=== PATIENT | female | born 1955 | race Caucasian/White ===

== ENCOUNTER 2018-02-18 07:11 | Day surgery (SDC) | payer BC ==
[~2018-02-18 07:11] MED LIST: DIPHENHYDRAMINE HCL 50 MG/ML VIAL ONE; EPINEPHRINE INJ 1 MG/10 ML DISP.SYRIN ONE; FENTANYL CITRATE INJ/PF 100 MCG/2 ML AMPUL ONE; FLUMAZENIL INJ 0.5 MG/5 ML VIAL ONE; GLUCAGON,HUMAN RECOMB 1 MG INJ ONE; NALOXONE HCL INJ/PF 0.4 MG/1 ML SDV ONE; ONDANSETRON HCL INJ/PF 4 MG/2 ML SDV ONE
[2018-02-18] MEDS: MIDAZOLAM 2 MG/2 ML INJ ONE ×4 (07:34→07:58)
--- NOTE | 2018-02-18 08:31 | Discharge Summary ---
Discharge Summary (SDC) - Discharge Final Diagnosis: Multiple colonic polyps; pandiverticulosis Date of Surgery: 02/18/18 Discharge Date: 02/18/18 Condition: Good Treatment or Instructions: [place] [id number] POST ENDOSCOPY DISCHARGE INSTRUCTIONS 1. Diet: Start clear liquids that a regular diet as tolerated. 2. Resume all preoperative medications. All oral anticoagulants and aspirins can be resumed 24 hours after procedure. 3. If a polypectomy was performed some bleeding per rectum may occur. This should stop within 3 days. If not, please contact the office. 4. If you had a colonoscopy you may experience some bloating and delayed return of normal bowel function for several days, your regular bowel movement pattern should resume within a week. 5. Please contact [facility] at to make an appointm ent with Dr. Marin for 1 to 3 weeks following procedure. 6. If you have any questions or concerns regarding your care,treatment plan or follow up, please contact our office. 7. Per clinical guidelines we recommend you undergo a repeat colonoscopy in 3 years. Referrals: JUDITH AGUAYO MD [Primary Care Provider] - Discharge Diet: As Tolerated Discharge Activity: Activity As Tolerated Home Care Assistance: None Needed Report the Following to Your Physician Immediately: Shortness of Breath, Increase in Pain, Fever over 101 Degrees
--- NOTE | 2018-02-18 08:40 | Operative Report ---
Operative Report DATE OF SURGERY: 02/18/18 PREOPERATIVE DIAGNOSIS: 1. Change in bowel habits. 2. Screen for colon carci noma POSTOPERATIVE DIAGNOSIS: Same with. 1. External hemorrhoids. 2. Pandiverticulosis. 3. Multiple colonic polyps of the ascending, transverse colon and rectosigmoid junction OPERATION: 1. Total colonoscopy to cecum with photodocumentation. 2. Multiple hot snare polypectomies of polyps of the ascending colon, transverse colon and rectosigmoid junction SURGEON: JOE ALAN ANESTHESIA: Moderate Sedation TISSUE REMOVED OR ALTERED: Multiple polyps and fragments thereof COMPLICATIONS: None ESTIMATED BLOOD LOSS: Scant INTRAOPERATIVE FINDINGS: See below PROCEDURE: Obtaining informed consent the patient was taken from the preoperative holding area to the main endoscopy suite where monitoring devices were attached to the patient. Plan and surgical timeout were conducted The patient was placed in the left lateral decubitus position with knees to chest. A perianal examination was performed. There was no visible or palpable anorectal pathology. Sphincter tone was felt to be normal. There were external hemorrhoids, collapsed; there was no evidence of anal stenosis. The flexible adult colonoscope was advanced through the anal rectal canal, all the way to the cecum. Visualization of the cecum was achieved and the ileocecal valve, the appendiceal orifice and transillumination of the anterior abdominal wall. This was an excellent study on the well-prepped bowel. The colonoscope was withdrawn slowly and methodically checked and the mucosa carefully. There was no evidence of tumor, stricture, bleeding; in the ascending colon just distal to the cecum was a pedunculated polyp approximately 6 mm in diameter. It was removed with a hot snare device, medium heat strength. The specimen was only retrieved in a fragmented form. Multiple attempts were made to retrieve the specimen through irrigation and suctioning but only fragments were retrieved. No significant bleeding at the polypectomy site There were faye diverticulosis throughout the entire colon. In the transverse colon was a sessile polyp approximately 4 mm in transverse diameter; it was photographed and removed with a hot snare device, and retrieved and labeled as transverse colon polyp. Polypectomy site without bleeding. Photos taken. In the rectosigmoid junction approximately 25 cm from anal verge was a small pedunculated polyp which was removed with the hot snare device. The specimen was very small likely to millimeters in diameter. A small fragment may have been retrieved and sent to pathology. There was no bleeding at the site. The scope was slowly withdrawn through the anal rectal canal. Complete visualization of the rectum was achieved with photodocumentation. The scope was withdrawn to the patient's anus. There were external hemorrhoids only. Again no evidence of thrombosis. The patient tolerated the procedure well and was taken to the recovery area in stable condition. Per surveillance guidelines, patient be appropriate candidate for follow-up colonoscopy in 3 years.
[2018-02-18 09:27] VITALS: BP 142/87
== END 2018-02-18 09:30 | disposition home or self-care (01) ==
LOC: END 07:11
PROVIDERS: ATTEND Surgery
DX: D12.2 Benign neoplasm of ascending colon (principal); D12.3 Benign neoplasm of transverse colon; D12.7 Benign neoplasm of rectosigmoid junction; K57.30 Diverticulosis of large intestine without perforation or abscess without bleeding; K64.4 Residual hemorrhoidal skin tags; M79.9 Soft tissue disorder, unspecified; K43.9 Ventral hernia without obstruction or gangrene; K92.1 Melena; K60.2 Anal fissure, unspecified; Z79.899 Other long term (current) drug therapy
CPT/HCPCS: 45385; 88305 ×2; J2250; J3010; J0171; J1200; J1610; J2310; J2405; J3490

== ENCOUNTER → 2019-03-15 | Outpatient (CLI) | payer BC ==
[2019-03-15 12:02] LABS: HEMATOCRIT 41.8 % (36.0-47.0); HEMOGLOBIN 14.3 g/dL (12.0-15.5); MEAN CORPUSCULAR HEMOGLOBIN 30.3 pg (27.0-33.4); MEAN CORPUSCULAR HGB CONC 34.2 g/dL (32.0-36.0); MEAN CORPUSCULAR VOLUME 88 fl (80-97); PLATELET COUNT 333 10^3/uL (150-450); RED BLOOD COUNT 4.73 10^6/uL (3.72-5.28); RED CELL DISTRIBUTION WIDTH 13.6 % (11.5-14.0)
[2019-03-15 12:21] LABS: ALBUMIN 3.8 g/dL (3.5-5.0); ALKALINE PHOSPHATASE 104 U/L (38-126); ANION GAP 8 (5-19); ASPARTATE AMINO TRANSFERASE 21 U/L (14-36); BILIRUBIN,DIRECT 0.3 mg/dL (0.0-0.4); BILIRUBIN,TOTAL 0.5 mg/dL (0.2-1.3); BLOOD UREA NITROGEN 11 mg/dL (7-20); CALCIUM 9.2 mg/dL (8.4-10.2); CARBON DIOXIDE 28 mmol/L (22-30); CHLORIDE 105 mmol/L (98-107); CHOLESTEROL 182.42 mg/dL (0-200); GLUCOSE 97 mg/dL (75-110); POTASSIUM 4.3 mmol/L (3.6-5.0); TOTAL PROTEIN 6.9 g/dL (6.3-8.2); TRIGLYCERIDES 91 mg/dL (<150)
[2019-03-15 12:32] LABS: DIRECT LDL 110 mg/dL (<100)
[2019-03-16 08:37] LABS: HEPATITIS C VIRUS AB <0.1 s/co ratio (0.0-0.9); T3 UPTAKE (RESIN) 26 % (24-39)
[2019-03-16 09:28] LABS: THYROID PEROXIDASE (TPO) AB 9 IU/mL (0-34)
== END ==
LOC: OD 11:12
PROVIDERS: ATTEND Obstetrics & Gynecology Gynecology
DX: E78.5 Hyperlipidemia, unspecified (principal); E55.9 Vitamin D deficiency, unspecified; Z13.1 Encounter for screening for diabetes mellitus; Z13.29 Encounter for screening for other suspected endocrine disorder; Z11.59 Encounter for screening for other viral diseases
CPT/HCPCS: 36415; 80053; 80061; 82306; 83036; 84436; 84443; 84479; 85027; 86376; 86803; 86804

== ENCOUNTER → 2020-03-06 | Outpatient (CLI) | payer BC ==
[~2020-03-06] MED LIST changes: +COVID-19 VACCINE (PFIZER)/PF 30 MCG/0.3 ML VIAL IM ONE; -DIPHENHYDRAMINE HCL 50 MG/ML VIAL ONE; -EPINEPHRINE INJ 1 MG/10 ML DISP.SYRIN ONE; +EPINEPHRINE INJ/PF 1 MG/1 ML AMPULE IM PRN; -FENTANYL CITRATE INJ/PF 100 MCG/2 ML AMPUL ONE; -FLUMAZENIL INJ 0.5 MG/5 ML VIAL ONE; -GLUCAGON,HUMAN RECOMB 1 MG INJ ONE; -NALOXONE HCL INJ/PF 0.4 MG/1 ML SDV ONE; -ONDANSETRON HCL INJ/PF 4 MG/2 ML SDV ONE
== END ==
LOC: EMPHEALTH 14:59
PROVIDERS: ATTEND Internal Medicine
DX: Z23 Encounter for immunization (principal)
CPT/HCPCS: 91300